=== PATIENT | male | born 1935 ===

== ENCOUNTER → 2017-08-04 | Outpatient (REF) | payer BC ==
[2017-08-04 22:08] LABS: FERRITIN 1515 NG/ML (26-388); FREE T4 1.26 NG/DL (0.76-1.46); PERCENT SATURATION 12.9 % (19.7-50.0); TOTAL IRON BINDING CAPACITY 139 UG/DL (250-450)
[2017-08-04 22:10] LABS: CORTISOL AM 23.2 UG/DL (4.3-22.4)
[2017-08-04 22:11] LABS: FOLATE > 24.0 NG/ML; VITAMIN B12 LEVEL 1351 PG/ML
== END ==
LOC: M LAB REF 17:36
PROVIDERS: ATTEND Internal Medicine Nephrology
DX: D64.9 Anemia, unspecified (principal); E87.1 Hypo-osmolality and hyponatremia

== ENCOUNTER → 2017-08-19 | Outpatient (REF) | payer BC ==
[2017-08-20 14:35] LABS: TOTAL PROTEIN 6.6 GM/DL (6.4-8.2)
[2017-08-22 00:06] LABS: FREE KAPPA LIGHT CHAINS SERUM 32.4 mg/L (3.3-19.4); FREE LAMBDA LIGHT CHAINS SERUM 36.4 mg/L (5.7-26.3); KAPPA/LAMBDA RATIO SERUM 0.89 (0.26-1.65)
[2017-08-23 14:02] LABS: ALBUMIN 2.57 GM/DL (3.29-5.55); ALBUMIN % 38.9 % (55.8-66.1); GAMMA GLOBULIN % 14.4 % (11.1-18.8)
== END ==
LOC: M LAB REF 13:30
PROVIDERS: ATTEND Internal Medicine Nephrology
DX: E83.52 Hypercalcemia (principal)